=== PATIENT | male | born 1950 | race African-American/Black ===

== ENCOUNTER 2021-04-12 11:55 | Outpatient (CLI) | payer OTHER | END 2021-04-12 23:59 | disposition home or self-care (01) | LOC: LAB 11:55 | PROVIDERS: ATTEND Specialist | DX: Z01.812 Encounter for preprocedural laboratory examination (principal); Z20.822 Contact with and (suspected) exposure to COVID-19 | CPT/HCPCS: C9803; U0003 ==

== ENCOUNTER 2021-04-17 08:00 | Inpatient (IN) | payer OTHER ==
[2021-04-17] VITALS (8 sets, daily range): BP systolic 131–151; BP diastolic 73–92
[~2021-04-17] VITALS: Ht 182.9 cm; Wt 104.3 kg
--- NOTE | 2021-04-17 09:00 | NUR ---
RN MS NOTES RECEIVED PT IN ROOM 304, PT IS AWAKE, ALERT AND ORIENTED, NO COMPLAINT OF PAIN AT THIS TIME, BREATHING PATTERN NORMAL, ON ROOM AIR, AMBULATES TO THE BATHROOM WITH STEADY GAIT, ROOM SET UP ORIENTATION PROVIDED, VERBALIZED UNDERSTANDING, IV LINE INSERTED TO RIGHT A/C, WITH GOOD BLOOD RETURN,TOLERATED WELL, CONSENTS SIGNED, PICKED UP BY O.R. STAFF VIA BED FOR LEFT KNEE SURGERY.
[2021-04-17] MEDS ORDERED: BUPIVACAINE 0.5 % PF 150 MG/30 ML VIAL ONE (09:02)
[2021-04-17] MEDS ORDERED: POLYMYXIN B SULFATE 500,000 UNITS ONE (09:02)
[2021-04-17] MEDS ORDERED: FENTANYL PF 250MCG/5ML AMPUL ONE (09:20)
[2021-04-17] MEDS ORDERED: ROCURONIUM BROMIDE 50 MG/5 ML ONE ×2 (09:20→10:27)
[2021-04-17] MEDS ORDERED: ALBUTEROL 17GM INHALER ONE (09:23)
[2021-04-17] MEDS ORDERED: TRANEXAMIC ACID 3,000 MG in SODIUM CHLORIDE IRRIG SOLUTION 70 ML IR ONE (10:00)
[2021-04-17] MEDS ORDERED: ONDANSETRON HCL/PF 4 MG/2 ML VIAL IV PRN (11:30)
[2021-04-17] MEDS ORDERED: MAG HYDROX/AL HYDROX/SIMETH 30 ML UDC PO PRN (11:30)
[2021-04-17] MEDS ORDERED: oxyCODONE IR immediate release 5 MG PO PRN (11:30)
[2021-04-17] MEDS ORDERED: CLONIDINE HCL 0.1 MG TABLET PO PRN (11:30)
[2021-04-17] MEDS ORDERED: MENTHOL/CETYLPYRD (CEPACOL) 1 LOZ LOZENGE PO PRN (11:30)
[2021-04-17] MEDS ORDERED: ALBUTEROL FS 2.5 MG/0.5 ML VIAL.NEB NEB PRN (11:30)
[2021-04-17] MEDS ORDERED: HYDROMORPHONE INJ 2 MG/ML DISP.SYRIN ONE ×2 (11:53→12:14)
[2021-04-17] MEDS ORDERED: ACETAMINOPHEN 325 MG TABLET PO PRN (12:30)
[2021-04-17] MEDS ORDERED: ZOLPIDEM TARTRATE 5 MG TABLET PO PRN (12:30)
--- NOTE | 2021-04-17 13:00 | NUR ---
RN MS NOTES RECEIVED OP FROM O.R. STAFF VIA BED, PT IS AWAKE, ALERT AND ORIENTED, WITH COMPLAINT OF PAIN, NOT IN DISTRESS, VITAL SIGNS TAKEN AND RECORDED, POST OP ORDERS RECEIVED FROM DR. HERNANDEZ AND DR. SPENCER, NOTED AND CARRIED OUT, DRESSING TO LEFT KNEE INTACT, CLEAN AND DRY, ICE APPLIED, KEPT PT COMFORTABLE, DIET ORDERED, KEPT WARM AND COMFORTABLE IN BED.
[2021-04-17] MEDS ORDERED: oxyCODONE IR immediate release 5 MG PO ONE (13:04)
[2021-04-17] MEDS: oxyCODONE IR immediate release 5 MG PO PRN ×2 (13:12→21:20)
[2021-04-17] MEDS: IV LR 1000 ML 1,000 ML IV PRN (13:13)
[2021-04-17] MEDS: diphenhydrAMINE HCL 25 MG CAPSULE PO PRN ×2 (13:28→20:09)
[2021-04-17] MEDS: HYDROMORPHONE 1 MG/1 ML DISP.SYRIN SQ PRN ×3 (13:28→22:25)
[2021-04-17] MEDS ORDERED: BISACODYL SUPP (10 MG) 10 MG/SUPP.RECT SUPP.RECT RC PRN (13:30)
[2021-04-17] MEDS ORDERED: SENNOSIDES 8.6 MG TABLET PO PRN (13:30)
[2021-04-17] MEDS ORDERED: DOCUSATE SODIUM 250 MG CAPSULE PO PRN (13:30)
[2021-04-17] MEDS ORDERED: BENA20TA9 PO (14:43)
[2021-04-17] MEDS ORDERED: AMLO2.5T4 PO (14:43)
[2021-04-17] MEDS ORDERED: HYDR-3980 PO (14:43)
[2021-04-17] MEDS ORDERED: ALBU18HF2 IH (14:43)
[2021-04-17] MEDS ORDERED: ASPI-1169 PO (14:55)
[2021-04-17] MEDS: HYDROMORPHONE 1 MG/1 ML DISP.SYRIN IM/IV/SC PRN (15:49)
[2021-04-17] MEDS: ANCEF 1 GM/50 ML D5W IV SCH (17:15)
[2021-04-17] MEDS: AMLODIPINE BESYLATE 5 MG TABLET PO SCH (17:17)
[2021-04-17] MEDS ORDERED: ALBUTEROL SULFATE INH 18 GM HFA.AER.AD IH PRN (18:00)
--- NOTE | 2021-04-17 18:30 | NUR ---
RN MS NOTES PATIENT ON BED AWAKE, A/0X4. RESIDENT STATUS POST REVISION OF LEFT KNEE ARTHROPLASTY, RESIDENT C/O PAIN ON HIS LEFT KNEE. PAIN MEDICATION PRN DOSE GIVEN ORDERED. REASSESS PAIN ACCORDINGLY. PT. WITH IV AT RIGHT ANTECUBITAL, INTACT AND PATENT. WILL CONTINUE TO MONITOR RESIDENT. KEPT PATIENT COMFORTABLE AT ALL TIMES. CALL LIGHT W/IN EASY REACH
--- NOTE | 2021-04-17 19:28 | NUR ---
RN NOTES PATIENT ON BED AWAKE, A/0X4. RESIDENT STATUS POST REVISION OF LEFT KNEE ARTHROPLASTY, RESIDENT C/O PAIN ON HIS LEFT KNEE. PAIN MEDICATION PRN DOSE GIVEN ORDERED. WILL REASSESS PAIN ACCORDINGLY. PT. WITH IV AT RIGHT ANTECUBITAL, INTACT AND PATENT. WILL CONTINUE TO MONITOR RESIDENT. KEPT PATIENT COMFORTABLE AT THIS TIME.CALL LIGHT W/IN EASY REACH. WILL CONTINUE TO MONITOR.
[2021-04-17] MEDS: FAMOTIDINE (20 MG) 20 MG TABLET PO SCH (20:09)
[2021-04-17] MEDS: hydrOXYzine 10 MG TABLET PO PRN (20:13)
--- NOTE | 2021-04-17 20:33 | NUR ---
RN NOTES PT REQUESTED MEDICATION FOR ITCHING.BENADRYL OFFERED PT AGREED ONCE MED WAS AT BEDSIDE PT REFUSED AND ASKED FOR THE ATARRAX INSTEAD ATARAX PROVIDED. MORENOL DISCARDED WITH LI LOVETT . WILL CONTINUE TO MONITOR.
[2021-04-17] MEDS: TAMSULOSIN 0.4 MG CAP.SR.24H PO SCH (21:11)
--- NOTE | 2021-04-17 21:21 | NUR ---
RN NOTES OXYCODONE GIVEN FOR BREAKTHROUGH PAIN 5/10 ON A NUMERIC PAIN SCALE WILL CONTINUE TO MONITOR .
--- NOTE | 2021-04-17 22:29 | NUR ---
RN NOTES PT STATED THE OXYCODONE DIDN'T HELP AND IS STILL HAVING 10/10 PAIN PRN DILAUDID 1 MG GIVEN SQ WILL CONTINUE TO MONITOR.
--- NOTE | 2021-04-18 | NUR ---
RN NOTES 1MG PRN DOSE GIVEN BUT 0.5 MG DILAUDID CLICKED ON IN PIXIS ACCIDENTALLY. CHARGE NURSE NOHEMI AWARE.
[2021-04-18] MEDS: HYDROMORPHONE 1 MG/1 ML DISP.SYRIN IM/IV/SC PRN ×3 (00:19→18:03)
[2021-04-18] MEDS: ANCEF 1 GM/50 ML D5W IV SCH (00:20)
--- NOTE | 2021-04-18 00:29 | NUR ---
RN NOTES 0.5 MG DILAUDID GIVEN FOR BREAKTHROUGH PAIN. WILL CONTINUE TO MONITOR. 1MG DILAUDID PULLED OUT ONLY 0.5 MG GIVEN DISCARDED WITH BONY JEFFERSON.
[2021-04-18] MEDS: HYDROMORPHONE 1 MG/1 ML DISP.SYRIN SQ PRN (01:42)
[2021-04-18] MEDS: hydrOXYzine 10 MG TABLET PO PRN (03:40)
--- NOTE | 2021-04-18 03:42 | NUR ---
RN NOTES PRN ATARAX WAS GIVEN FOR SEVERE ITCHING PT TOLERATED WELL. PT DOES NOT NEED PAIN MEDICATION AT THIS TIME. WILL CONTINUE TO MONITOR.
[2021-04-18] MEDS: IV LR 1000 ML 1,000 ML IV PRN ×2 (05:23→21:59)
[2021-04-18] MEDS: oxyCODONE IR immediate release 5 MG PO PRN (06:23)
--- NOTE | 2021-04-18 06:25 | NUR ---
RN NOTES PRN OXYCODONE GIVEN FOR BREAKTHROUGH PAIN TOLERATED WELL WILL CONTINUE TO MONITOR.
--- NOTE | 2021-04-18 06:27 | NUR ---
RN NOTES PATIENT ON BED AWAKE, A/0X4. RESIDENT STATUS POST REVISION OF LEFT KNEE ARTHROPLASTY, RESIDENT C/O PAIN ON HIS LEFT KNEE. PAIN MEDICATION PRN DOSE GIVEN ORDERED.. PT. WITH IV AT RIGHT ANTECUBITAL, INTACT AND PATENT RUNNING LR @100 ML/HR. WILL CONTINUE TO MONITOR RESIDENT. KEPT PATIENT COMFORTABLE AT THIS TIME.CALL LIGHT W/IN EASY REACH. WILL ENDORSE CARE TO DAY SHIFT NURSE.
--- NOTE | 2021-04-18 07:28 | NUR ---
RN OPENING NOTE- PT IN BED AWAKE, A/0X4. S/P REVISION OF LEFT KNEE ARTHROPLASTY, RESIDENT C/O PAIN ON HIS LEFT KNEE. PAIN MEDICATIONS GIVEN BY NOC SHIFT WILL REASSESS PAIN ACCORDINGLY. PT. WITH IV AT RIGHT AC, INTACT AND PATENT. WILL CONTINUE TO MONITOR RESIDENT. KEPT PATIENT COMFORTABLE AT THIS TIME.CALL LIGHT W/IN EASY REACH. WILL CONTINUE TO MONITOR.
[2021-04-18] MEDS ORDERED: HYDROCODONE/APAP 10/325MG TABLET PO ONE (08:13)
[2021-04-18] MEDS: BENAZEPRIL HCL 20 MG TABLET PO SCH (08:29)
[2021-04-18] MEDS: FAMOTIDINE (20 MG) 20 MG TABLET PO SCH ×2 (08:29→21:12)
[2021-04-18] MEDS: DOCUSATE SODIUM 100 MG CAPSULE PO SCH ×2 (08:29→16:47)
[2021-04-18] MEDS: PSYLLIUM SEED 1 PKT PACKET PO SCH ×2 (08:29→16:47)
[2021-04-18] MEDS: ASPIRIN 325 MG TABLET PO SCH (08:29)
[2021-04-18] MEDS ORDERED: oxyCODONE IR immediate release 5 MG PO PRN (08:30)
[2021-04-18] MEDS: AMLODIPINE BESYLATE 5 MG TABLET PO SCH ×2 (08:31→16:47)
[2021-04-18 08:46] VITALS: BP 145/84
[2021-04-18] MEDS ORDERED: AMLODIPINE BESYLATE 2.5 MG TABLET PO SCH (09:00)
[2021-04-18] MEDS: HYDROCODONE/APAP 10/325MG TABLET PO PRN ×4 (10:16→21:20)
[2021-04-18 15:15] LABS: BASOPHILS % (AUTO) 0.2 % (0.0-2.0); EOSINOPHILS % (AUTO) 1.2 % (0.0-6.0); HEMATOCRIT 37 % (39-51); HEMOGLOBIN 12.2 g/dL (13.5-17.5); LYMPHOCYTES % (AUTO) 11.9 % (20.0-44.0); MEAN CORPUSCULAR HGB CONC 33 g/dl (31.0-36.0); MEAN CORPUSCULAR VOLUME 87 fL (80-96); MONOCYTES # (AUTO) 1.3 K/uL (0.1-1.30); MONOCYTES % (AUTO) 16.7 % (2.0-12.0); NEUTROPHILS # (AUTO) 5.6 K/uL (1.8-8.9); PLATELET COUNT (AUTO) 176 K/uL (150-450); RED BLOOD CELL COUNT(AUTO) 4.19 MIL/uL (4.5-6.0)
[2021-04-18 15:22] LABS: CALCIUM, SERUM 8.2 mg/dL (8.5-10.1); CREATININE 1.3 mg/dL (0.6-1.3); POTASSIUM 4.5 mmol/L (3.5-5.1)
[2021-04-18 16:04] VITALS: BP 143/79
[2021-04-18 16:28] LABS: EOSINOPHILS % (MANUAL) 2 % (0-4); LYMPHOCYTES % (MANUAL) 18 % (16-48); MONOCYTES % (MANUAL) 6 % (0-11.0); NEUTROPHILS % (MANUAL) 74 (42-76)
--- NOTE | 2021-04-18 18:26 | NUR ---
RN CLOSING NOTE- PT IN BED AWAKE, A/0X4. S/P REVISION OF LEFT KNEE ARTHROPLASTY, RESIDENT C/O PAIN ON HIS LEFT KNEE. PAIN AN ISSUE THIS DAY KEEPING HIM COMFORTABLE. DR SPENCER TO SEE PT EARLIER. HE CHANGED RX, PT. WITH IV AT RIGHT AC, INTACT AND PATENT. LR AT 100/HR WILL CONTINUE TO MONITOR RESIDENT. KEPT PATIENT COMFORTABLE AT THIS TIME.CALL LIGHT W/IN EASY REACH. WILL CONTINUE TO MONITOR.
--- NOTE | 2021-04-18 19:45 | NUR ---
[employer]PER[employer] OPENING NOTE PT A/OX4 ABLE TO MAKE NEEDS KNOWN. TOLERATING R/A WELL WITH NO SOB. PT DENIES PAIN OR DISCOMFORT AT THIS TIME. DRESSING TO L KNEE KEPT C/D/I. RAC#20G LR @ 100ML/HR. SAFETY MEASURES IN PLACE: BED IN LOWEST LOCKED POSITION; SIDE RAILS UPX2, CALL LIGHT WITHIN EASY REACH, BED ALARMS ON. PATIENT IN STABLE CONDITION, WILL CONTINUE PLAN OF CARE. Addendum: 04/18/21 at 2010 by WOODY WOODY RN MS RN OPENING NOTE
[2021-04-18 20:00] VITALS: BP 142/78
[2021-04-18] MEDS: TAMSULOSIN 0.4 MG CAP.SR.24H PO SCH (21:12)
--- NOTE | 2021-04-18 21:20 | NUR ---
MS RN NOTE - PAIN PT C/O 12/20 L KNEE PAIN. ADMINISTERED NORCO 10-325MG ORDERED PER PT'S REQUEST. WILL REASSESS FOR PAIN IN 30 MINUTES.
[2021-04-19] MEDS: HYDROCODONE/APAP 10/325MG TABLET PO PRN ×4 (03:30→16:23)
--- NOTE | 2021-04-19 03:30 | NUR ---
MS RN NOTE - PAIN PT C/O 12/20 L KNEE PAIN. ADMINISTERED NORCO 10-325MG ORDERED PER PT'S REQUEST. WILL REASSESS FOR PAIN IN 30 MINUTES.
--- NOTE | 2021-04-19 06:00 | NUR ---
MS RN CLOSING NOTE PT A/OX4 ABLE TO MAKE NEEDS KNOWN. TOLERATING R/A WELL WITH NO SOB. PT DENIES PAIN OR DISCOMFORT AT THIS TIME. DRESSING TO L KNEE KEPT C/D/I. RAC#20G LR @ 100ML/HR. SAFETY MEASURES IN PLACE: BED IN LOWEST LOCKED POSITION; SIDE RAILS UPX2, CALL LIGHT WITHIN EASY REACH, BED ALARMS ON. PATIENT IN STABLE CONDITION, WILL ENDORSE PLAN OF CARE TO ONCOMING MORNING RN.
--- NOTE | 2021-04-19 07:30 | NUR ---
MS RN OPENING NOTE RECEIVED PT AWAKE IN BED. A/O X4. PT IS STABLE ON ROOM AIR. NO SOB OR S/S OF RESPIRATORY DISTRESS NOTED. PT HAS NO C/O PAIN OR DISCOMFORT AT THIS TIME. IV ACCESS IN RAC #20 INFUSING LR @ 100 ML/HR, INTACT AND PATENT. SAFETY PRECAUTIONS MAINTAINED. BED IN LOWEST LOCKED POSITION, HOB ELEVATED, SIDE RAILS UP X2. CALL LIGHT AND TABLE WITHIN REACH. WILL CONTINUE WITH PLAN OF CARE.
--- NOTE | 2021-04-19 08:17 | NUR ---
RN PAIN PT C/O ACHING PAIN IN LEFT KNEE, RATED 3/10 ON 0-10 PAIN SCALE. VSS. PER PT REQUEST, ADMINISTERED NORCO 10-325 PO Q3H PRN FOR PAIN. WILL CONTINUE TO MONITOR PT.
[2021-04-19] MEDS: ASPIRIN 325 MG TABLET PO SCH (08:19)
[2021-04-19] MEDS: FAMOTIDINE (20 MG) 20 MG TABLET PO SCH (08:20)
[2021-04-19] MEDS: BENAZEPRIL HCL 20 MG TABLET PO SCH (08:20)
[2021-04-19] MEDS: DOCUSATE SODIUM 100 MG CAPSULE PO SCH (08:20)
[2021-04-19 08:21] VITALS: BP 152/89
[2021-04-19] MEDS: PSYLLIUM SEED 1 PKT PACKET PO SCH (08:21)
[2021-04-19] MEDS: AMLODIPINE BESYLATE 5 MG TABLET PO SCH (08:21)
[2021-04-19] MEDS ORDERED: ASPI-992 PO (08:46)
[2021-04-19] MEDS: HYDROMORPHONE 1 MG/1 ML DISP.SYRIN IM/IV/SC PRN ×2 (09:44→13:35)
--- NOTE | 2021-04-19 09:44 | NUR ---
RN PAIN PT C/O ACHING PAIN IN LEFT KNEE, RATED 9/10 ON 0-10 PAIN SCALE. VSS. PER PT REQUEST, ADMINISTERED DILAUDID 0.5MG IV Q2H PRN FOR PAIN. WILL CONTINUE TO MONITOR PT.
[2021-04-19] MEDS ORDERED: POLYETHYLENE GLYCOL 3350 17 GM POWD.PACK PO ONE (10:34)
--- NOTE | 2021-04-19 17:30 | NUR ---
MS LOAN DOCUMENTATION SPECIALIST NOTE PT DISCHARGED HOME AT THIS TIME. PT IS MEDICALLY STABLE AND CLEARED FOR DISCHARGE BY DR. MICHELLE. ALL PT CARE, NEEDS, MEDICATIONS, AND TREATMENT ADMINISTERED PER ORDER. DISCHARGE INSTRUCTIONS PROVIDED TO PT. PT KEPT CLEAN AND DRY. IV ACCESS REMOVED, PRESSURE APPLIED, AND SECURED WITH GAUZE AND TAPE. NO SIGNS OF BLEEDING NOTED. ID BAND REMOVED. PT TRANSPORTED TO [facility] VIA WHEELCHAIR, ACCOMPANIED BY [facility]. SEAN CHARGE NURSE AND DR. MICHELLE AWARE.
[2021-04-19] MEDS ORDERED: POLYETHYLENE GLYCOL 3350 17 GM POWD.PACK PO SCH (22:00)
== END 2021-04-19 17:20 | disposition home or self-care (01) | DRG 468 ==
LOC: DS 08:00 → MED 08:03
PROVIDERS: ADMIT Internal Medicine; ATTEND Internal Medicine
PROC: 0SPD0JZ Removal of Synthetic Substitute from Left Knee Joint, Open Approach (ICD-10-PCS; principal; 2021-04-17)
PROC: 0SRD0J9 Replacement of Left Knee Joint with Synthetic Substitute, Cemented, Open Approach (ICD-10-PCS; 2021-04-17)
DX: T84.033A Mechanical loosening of internal left knee prosthetic joint, initial encounter (principal); T84.84XA Pain due to internal orthopedic prosthetic devices, implants and grafts, initial encounter; Y83.1 Surgical operation with implant of artificial internal device as the cause of abnormal reaction of the patient, or of later complication, without mention of misadventure at the time of the procedure; E66.9 Obesity, unspecified; I10 Essential (primary) hypertension; Z85.46 Personal history of malignant neoplasm of prostate; Y92.89 Other specified places as the place of occurrence of the external cause; J44.9 Chronic obstructive pulmonary disease, unspecified; Z68.31 Body mass index [BMI] 31.0-31.9, adult; Z85.528 Personal history of other malignant neoplasm of kidney; Z90.79 Acquired absence of other genital organ(s); Z90.5 Acquired absence of kidney
CPT/HCPCS: 36415; 80048-TC; 85025-TC; 87081-TC; 97116-TC; 97530-TC; A4217; A6209; C1713; C1776; G0378; J0360; J0690; J1100; J1170; J2405; J2704; J3010; J3490; J7030; J7060; J7120; L1830; Q0163; Q0177